=== PATIENT | male | born 1975 | race Caucasian/White ===

== ENCOUNTER → 2017-05-26 | Outpatient (CLI) | payer OTHER ==
[~2017-05-26] MED LIST: CPR250T PO; CPR500T PO; HYDR-34 PO; HYOS0.1217 PO; LISI20TA PO; PHEN200T27 PO
--- NOTE | 2017-05-26 11:05 | Diagnostic Imaging Report ---
Procedure: PA and lateral chest at 10:37. Indication: Preop gastric bypass. Comparison: There are no prior chest exams available for comparison. Findings: The heart size is within normal limits. The lungs are clear. There is no evidence for failure, pneumonia or for pleural effusion. Mediastinum is not widened. The osseous structures are intact. Impression: There is no evidence for an acute cardiopulmonary abnormality. Dictated by: Dictated on workstation # [id number]
== END ==
LOC: CARD 09:33
PROVIDERS: ATTEND Family Medicine
DX: Z01.811 Encounter for preprocedural respiratory examination (principal); Z01.810 Encounter for preprocedural cardiovascular examination; I10 Essential (primary) hypertension
CPT/HCPCS: 71046; 93005

== ENCOUNTER 2019-02-28 12:58 | Outpatient (CLI) | payer OTHER ==
[~2019-02-28] VITALS: Ht 180.3 cm; Wt 130.2 kg
[2019-02-28 13:35] VITALS: BP 135/90
[2019-02-28 13:39] LABS: BASOPHILS % (AUTO) 1 % (0-10); EOSINOPHILS # (AUTO) 0.2 10^3/uL (0.0-0.3); EOSINOPHILS % (AUTO) 3 % (0-10); HEMATOCRIT 48 % (40-54); LYMPHOCYTES # (AUTO) 1.9 X 10^3 (1.0-4.0); LYMPHOCYTES % (AUTO) 23 % (12-44); MEAN CORPUSCULAR HEMOGLOBIN 30 PG (25-34); MEAN CORPUSCULAR HGB CONC 34 G/DL (32-36); MEAN CORPUSCULAR VOLUME 88 FL (80-99); MEAN PLATELET VOLUME 10.6 FL (7.4-10.4); MONOCYTES # (AUTO) 0.7 X 10^3 (0.0-1.0); MONOCYTES % (AUTO) 8 % (0-12); NEUTROPHILS # (AUTO) 5.3 X 10^3 (1.8-7.8); NEUTROPHILS % (AUTO) 65 % (42-75); PLATELET COUNT 281 10^3/uL (130-400); RED CELL DISTRIBUTION WIDTH 14.4 % (10.0-14.5); WHITE BLOOD COUNT 8.1 10^3/uL (4.3-11.0)
[2019-02-28] MEDS ORDERED: LISI-552 PO (13:39)
[2019-02-28] MEDS ORDERED: AMLO5TAB9 PO (13:39)
== END 2019-02-28 13:25 | disposition home or self-care (01) ==
LOC: PREOP 12:58
PROVIDERS: ATTEND Surgery
DX: Z01.812 Encounter for preprocedural laboratory examination (principal); E66.01 Morbid (severe) obesity due to excess calories
CPT/HCPCS: 36415; 85025; 87081

== ENCOUNTER 2019-03-07 12:22 | Day surgery (SDC) | payer OTHER ==
[~2019-03-07] VITALS: Ht 180.3 cm; Wt 126.8 kg
[2019-03-07] VITALS (14 sets, daily range): BP systolic 135–165; BP diastolic 84–98
[~2019-03-07 12:22] MED LIST changes: +AMLO5TAB9 PO; +LISI-552 PO
[2019-03-07] MEDS: LACTATED RINGERS 1,000 ML IV PRN ×2 (12:50→16:48)
[2019-03-07] MEDS ORDERED: ceFAZolin 2 GM/50 ML NS 50 ML IV ONE (13:15)
[2019-03-07] MEDS ORDERED: BUP/EPI 0.5% 1:200,000 (SENSORCAINE) 30 ML VIAL ONE ×2 (13:58→17:09)
[2019-03-07] MEDS ORDERED: MIDAZOLAM 2 MG/2 ML (VERSED) VIAL ONE (13:58)
[2019-03-07] MEDS ORDERED: fentaNYL INJECTION 100 MCG/2 ML AMP ONE (13:58)
[2019-03-07] MEDS ORDERED: morphine INJ 10 MG/ML 1ML (SYR OR VIAL) ONE (15:22)
[2019-03-07] MEDS ORDERED: NS IV 1000 ML 1,000 ML IV SCH ×2 (15:56→19:15)
--- NOTE | 2019-03-07 15:56 | Progress Note-Pre Operative ---
Pre-Operative Progress Note H&P Reviewed The H&P was reviewed, patient examined and no changes noted. Date Seen by Provider: Mar 07, 2019 Time Seen by Provider: 15:30 Date H&P Reviewed: Mar 07, 2019 Time H&P Reviewed: 15:30 Pre-Operative Diagnosis: morbid obesity, sleep apnea, HTN KEN FOWLER MD Mar 07, 2019 15:56
[2019-03-07] MEDS ORDERED: RT-ALBUTEROL SULF 2.5 MG/3 ML PRE-MIX VIAL INH SCH (16:00)
[2019-03-07] MEDS ORDERED: oxyCODONE 5 MG/5 ML ORAL SOLN (roxiCODONE) 5 ML UDC PO PRN (16:00)
[2019-03-07] MEDS ORDERED: ONDANSETRON 4 MG/2 ML (SDV) Z0FRAN IV PRN (16:00)
[2019-03-07] MEDS ORDERED: fentaNYL INJECTION 1,000 MCG in NS (IVPB) 80 ML IV SCH (16:00)
[2019-03-07] MEDS ORDERED: NALOXONE 0.4 MG/ML 1 ML (NARCAN) VIAL IV PRN (16:00)
[2019-03-07] MEDS ORDERED: diphenhydrAMINE 50 MG/ML INJ (BENADRYL) IVP PRN (16:00)
[2019-03-07] MEDS ORDERED: METOCLOPRAMIDE INJ 10 MG/2 ML (REGLAN) IV PRN (16:00)
[2019-03-07] MEDS ORDERED: diphenhydrAMINE 50 MG/ML INJ (BENADRYL) IV PRN (16:00)
[2019-03-07] MEDS ORDERED: LIDOCAINE PF 2% 5 ML (XYLOCAINE) VIAL ONE (17:14)
[2019-03-07] MEDS ORDERED: ONDANSETRON 4 MG/2 ML (SDV) Z0FRAN ONE (17:14)
[2019-03-07] MEDS ORDERED: GLYCOPYRROLATE 0.2 MG/ML (ROBINUL) 2 ML VIAL ONE (17:14)
[2019-03-07] MEDS ORDERED: proPOfol 200 MG/20 ML (DIPRIVAN) VIAL IV ONE (17:14)
[2019-03-07] MEDS ORDERED: NEOSTIGMINE 3 MG/3 ML VIAL ONE (17:14)
[2019-03-07] MEDS ORDERED: DEXAMETHASONE 10 MG/ML (DECADRON) 1 ML VIAL ONE (17:14)
[2019-03-07] MEDS ORDERED: SEVOFLURANE (ULTANE) 15 ML INHAL SOLN ONE (17:14)
--- NOTE | 2019-03-07 17:34 | Progress Note-Post Operative ---
Post-Operative Progess Note Surgeon (s)/Hand Ii Cutter (s) Surgeon KEN FOWLER MD Hand Ii Cutter: trish fontaine [employer] Pre-Operative Diagnosis morbid obesity, sleep apnea, HTN Post-Operative Diagnosis same Procedure & Operative Findings Date of Procedure 03/07/19 Procedure Performed/Findings laparoscopic gastric sleeve resection Anesthesia Type get Estimated Blood Loss Estimated blood loss (mL): minimal Specimens/Packing Specimens Removed stomach KEN FOWLER MD Mar 07, 2019 17:34
[2019-03-07] MEDS ORDERED: ONDN4T PO (17:36)
[2019-03-07] MEDS ORDERED: PANT40TA3 PO (17:36)
[2019-03-07] MEDS ORDERED: HYDR-34 PO (17:36)
--- NOTE | 2019-03-07 17:37 | Discharge Inst-Surgical ---
D/C Lap Instructions-[place] Follow Up Appt in 2 weeks Activity as tolerated No driving for 24 hours No [address] while on pain medications Incentive Spirometry use every 2 hours while awake Phase 1 clear liquid diet for next 2 weeks. Symptoms to Report: Fever over 101 degree F, Nausea/Vomiting Infection Signs and Symptoms to report: Increased redness, Foul odor of wound, Increased drainage Bathing instructions: May shower Operative Area Clean/Dry; Keep incision clean/dry If any problems/questions: Contact your physician or go to Emergency Room KEN FOWLER MD Mar 07, 2019 17:37
[2019-03-07] MEDS ORDERED: PROMETHAZINE INJ 25 MG/ML (PHENERGAN) AMP IVP ONE (18:00)
[2019-03-07] MEDS ORDERED: morphine INJ 10 MG/ML 1ML (SYR OR VIAL) IVP ONE (18:00)
[2019-03-07] MEDS ORDERED: HYDROmorphone 2 MG/ML VIAL (DILAUDID) IV ONE (18:00)
[2019-03-07] MEDS ORDERED: MEPERIDINE (DEMEROL) INJ 50 MG/ML IVP ONE (18:00)
[2019-03-07] MEDS ORDERED: ONDANSETRON 4 MG/2 ML (SDV) Z0FRAN IVP PRN (18:00)
[2019-03-07] MEDS: metroNIDAZOLE 500MG/100ML IVPB 100 ML IV SCH ×2 (20:04→20:42)
[2019-03-07] MEDS: METOCLOPRAMIDE INJ 10 MG/2 ML (REGLAN) IVP SCH (20:42)
[2019-03-07] MEDS: ONDANSETRON 4 MG/2 ML (SDV) Z0FRAN IVP SCH (20:43)
[2019-03-07] MEDS: ENOXAPARIN 40 MG/0.4 ML (LOVENOX) SYR SC SCH (22:11)
[2019-03-07] MEDS: ceFAZolin 2 GM/50 ML NS 50 ML IV SCH (22:11)
[2019-03-08 00:34] VITALS: BP 157/91
[2019-03-08] MEDS: METOCLOPRAMIDE INJ 10 MG/2 ML (REGLAN) IVP SCH ×3 (01:47→13:36)
[2019-03-08] MEDS: ONDANSETRON 4 MG/2 ML (SDV) Z0FRAN IVP SCH ×3 (01:47→13:38)
[2019-03-08] MEDS: RT-ALBUTEROL SULF 2.5 MG/3 ML PRE-MIX VIAL INH SCH ×3 (02:36→11:01)
[2019-03-08] MEDS: metroNIDAZOLE 500MG/100ML IVPB 100 ML IV SCH ×2 (02:42→07:52)
--- NOTE | 2019-03-08 03:35 | OPERATIVE REPORT ---
DATE OF SERVICE: 03/07/2019 ATTENDING PRIMARY CARE PHYSICIAN: Dr. Jama. PREOPERATIVE DIAGNOSES: Morbid obesity, sleep apnea, hypertension. POSTOPERATIVE DIAGNOSES: Morbid obesity, sleep apnea, hypertension. PROCEDURE: Laparoscopic gastric sleeve resection. SURGEON: Ken Fowler MD. TRUSS DRIVER HELPER: Grabiel Estrada APRN. ANESTHESIA: General endotracheal. ESTIMATED BLOOD LOSS: Minimal. FINDINGS: Normal appearing stomach, liver, gallbladder. No hiatal hernia. DISPOSITION: The patient tolerated the procedure well. INDICATIONS: The patient is a 43-year-old male, who is in our surgical weight loss program for the laparoscopic gastric sleeve resection and meets the medical criteria for bariatric surgery. He began to gain the majority of his adult weight in his late 20s. He has tried a number of diet and exercise attempts without any success. He has tried diet programs including low-calorie, low-carbohydrate diet as well as SlimFast and has had some success; however, would always regain the weight back. He has also tried exercise regimens including resistance weight training, cardiovascular exercise machines and again would have some excess; however, would regain the weight back. He has also tried medications including phentermine; however, once he had stopped the medication he regained all his weight back. His medical comorbidities related to obesity include hypertension and obstructive sleep apnea. DESCRIPTION OF PROCEDURE: The patient was brought to the operating room, laid supine on the table. After adequate IV pain and sedative medications and general endotracheal intubation, the abdomen was prepped and draped in standard surgical fashion. A 0.5% Marcaine with epinephrine was then used to anesthetize the overlying skin in the left upper abdominal quadrant and transverse skin incision made using a 15 blade. An 0 silk suture was applied to the medial aspect of the incision for retraction and Veress needle inserted with a low opening pressure of 0 mmHg. The abdomen was insufflated to 15 mmHg pressure. Veress needle removed and a 5 mm XL trocar placed followed by a 5 mm 45-degree angle laparoscope visualizing the peritoneal cavity. A 4-quadrant abdominal exploration was performed. There was normal appearing gallbladder, liver, stomach and omentum. No hiatal hernia identified. Under direct visualization, we then proceeded to place a midabdominal left to midline 10 mm port after the skin and peritoneal lining were anesthetized using 0.5% Marcaine with epinephrine and transverse skin incision made using a 15 blade. In a similar manner, a midabdominal right of midline 15 mm port was placed followed by right upper abdominal quadrant 5 mm port. The epigastric region was then anesthetized using 0.5% Marcaine with epinephrine and a transverse skin incision made using 11 blade. A tract was then created through the abdominal wall layers using a trocar to a 5 mm port and through this opening, a medium-sized Nathansen liver retractor was placed and the left lobe of the liver was retracted anteriorly and superiorly. The patient was then placed in steep reverse Trendelenburg position. We then measured approximately 6 cm from the pylorus along the greater curvature and marked this with a marking pen. The gastrocolic ligament was then opened next to the stomach using the Sonicision entering the lesser sac. We then proceeded with inferior caudal dissection until we were approximately 2 cm below our marking using Sonicision. We then proceeded to take down the short gastric vessels and dissection cephalad until the angle of His connective tissue fibers and the posterior stomach behind this region were completely dissected out with visualization of good hemostasis. A 36-Lux[place]bourgish ViSiGi catheter was then placed under direct visualization and then directly guided into the pylorus. Using this as our staple line guide, we first proceeded with a TRAMAINE-45 mm polyglycolic black load and completed our resection using 60 mm black load and two 60 mm purple loads completing our resection and leaving approximately 2 cm near the gastroesophageal junction. Good hemostasis was observed. The staple line corners were then clipped with 5 mm clips. Tisseel fibrin glue was then placed on the staple line and omentum was then placed over the staple line. A leak test was performed and ViSiGi inflated to 35 atmospheres of pressure with no leak identified. This gas was then suctioned out and the ViSiGi removed. The stomach was removed through the 15 mm port site and the fascia and peritoneum to the 15 and 10 mm port site were then closed under direct visualization using a Nolan-Nelson device and 0 Vicryl suture. The abdomen was desufflated and remaining ports removed. All skin incisions were closed using 4-0 Monocryl running subcuticular sutures. Wounds were then cleaned and covered with Dermabond. The patient tolerated the procedure well. We will admit him 23-hour observation, proceed with DVT prophylaxis with early ambulation, calf SCDs as well as Lovenox injections. We will also proceed with pain control with INSTRUCTOR BUS TROLLEY AND TAXI pump. Tomorrow we will start a phase I clear liquid diet. Once he is tolerating 60 mL of clear liquids every 30 minutes, has adequate pain control with oral pain medications, ambulating well, we will discharge him home and have him follow phase I clear liquid diet for the next 2 weeks. Job ID: [id number] DocumentID: [id number] Dictated Date: 03/07/2019 17:45:20 Baler Operator Date: 03/08/2019 03:35:11 Dictated By: KEN FOWLER MD
[2019-03-08 03:47] VITALS: BP 155/97
[2019-03-08 05:10] LABS: HEMOGLOBIN 15.7 G/DL (13.3-17.7); MEAN PLATELET VOLUME 11.4 FL (7.4-10.4); RED CELL DISTRIBUTION WIDTH 14.3 % (10.0-14.5); WHITE BLOOD COUNT 11.8 10^3/uL (4.3-11.0)
[2019-03-08] MEDS: ceFAZolin 2 GM/50 ML NS 50 ML IV SCH (06:34)
--- NOTE | 2019-03-08 07:11 | Anesthesia-General Post-Op ---
General Patient Condition Mental Status/LOC: Same as Preop Cardiovascular: Satisfactory Nausea/Vomiting: Absent Respiratory: Satisfactory Pain: Controlled Complications: Absent Post Op Complications Complications None Follow Up Care/Instructions Patient Instructions None needed. Anesthesia/Patient Condition Patient Condition Patient is doing well, no complaints, stable vital signs, no apparent adverse anesthesia problems. No complications reported per nursing. D/C home per [facility] Criteria: Yes ANDREINA WALLACE CRNA Mar 08, 2019 07:11
[2019-03-08] MEDS: ENOXAPARIN 40 MG/0.4 ML (LOVENOX) SYR SC SCH (07:52)
[2019-03-08 08:00] VITALS: BP 141/82
[2019-03-08] MEDS ORDERED: SENNA W/DOCUSATE (SENOKOT S) TABLET PO SCH (09:00)
[2019-03-08] MEDS ORDERED: PANTOPRAZOLE 40 MG (PROTONIX) VIAL IV SCH (09:00)
[2019-03-08] MEDS ORDERED: PANTOPRAZOLE 40 MG (PROTONIX) TAB PO SCH (09:00)
--- NOTE | 2019-03-08 10:00 | Progress Note ---
Subjective Date Seen by a Provider: Mar 08, 2019 Time Seen by a Provider: 09:00 Subjective/Events-last exam doing well. mild nausea however controlled with meds. no fever/chills. tolerating clears. has not ambulated well. Objective Exam Vital Signs Date Time Temp Pulse Resp B/P (MAP) Pulse Ox O2 Delivery O2 Flow Rate FiO2 03/08/19 08:00 37.8 137 18 141/82 (101) 94 Room Air 03/08/19 07:43 96 Room Air 03/08/19 03:47 37.0 119 18 155/97 (116) 96 Room Air 03/08/19 02:36 Room Air 03/08/19 00:34 36.6 116 20 157/91 (113) 97 Room Air 03/07/19 23:00 36.4 119 22 141/87 (105) 99 Room Air 03/07/19 22:52 36.2 117 20 153/94 95 Room Air 03/07/19 22:00 37.0 114 20 145/88 (107) 96 Room Air 03/07/19 20:57 36.8 116 16 140/84 (102) 96 Room Air 03/07/19 20:52 36.4 117 16 137/86 (103) 96 Room Air 03/07/19 20:00 Room Air 03/07/19 18:50 36.2 117 20 153/94 (113) 95 Room Air 03/07/19 18:45 Room Air 03/07/19 18:40 36.2 16 148/95 (112) 96 Room Air 03/07/19 18:30 16 149/92 (111) 95 Room Air 03/07/19 18:30 Room Air 03/07/19 18:20 16 158/95 (116) 100 Simple Mask 5 03/07/19 18:15 Simple Mask 5 03/07/19 18:10 16 157/97 (117) 98 Simple Mask 8 03/07/19 18:00 Simple Mask 8 03/07/19 18:00 16 163/95 (117) 99 Simple Mask 8 03/07/19 17:55 16 159/96 (117) 100 Simple Mask 8 03/07/19 17:45 Simple Mask 8 03/07/19 17:45 36.6 11 165/98 (120) 97 Simple Mask 8 03/07/19 14:58 36.1 75 18 135/86 (102) 94 Room Air I & O0 03/08/19 06:59 Intake Total 1300 ml Output Total 1525 ml Balance -225 ml Capillary Refill : General Appearance: No Apparent Distress HEENT: PERRL/EOMI Neck: Full Range of Motion Respiratory: Chest Non Tender, Lungs Clear, Normal Breath Sounds Cardiovascular: Regular Rate, Rhythm Gastrointestinal: normal bowel sounds, soft, tenderness Extremity: Normal Capillary Refill Neurologic/Psychiatric: Alert, Oriented x3 Skin: Normal Color Lymphatic: No Adenopathy Results Lab Laboratory Tests 03/08/19 04:40: White Blood Count 11.8H, Red Blood Count 5.32, Hemoglobin 15.7, Hematocrit 46, Mean Corpuscular Volume 87, Mean Corpuscular Hemoglobin 30, Mean Corpuscular Hemoglobin Concent 34, Red Cell Distribution Width 14.3, Platelet Count 300, Mean Platelet Volume 11.4H Assessment/Plan Assessment/Plan Assess & Plan/Chief Complaint s/p lap sleeve gastrectomy. increase ambulation and IS. transition to PO pain meds. home soon. Clinical Quality Measures DVT/VTE Risk/Contraindication: Risk Factor Score Per Nursin RFS Level Per Nursing on Admit: 4+=Very High KEN FOWLER MD Mar 08, 2019 10:00
[2019-03-08 11:28] VITALS: BP 141/82
[2019-03-08 15:20] VITALS: BP 141/82
--- NOTE | 2019-03-08 15:43 | NUR ---
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 WITNESS TO MEDICATION WASTE WAS ANA JERRY. WASTE AMOUNT WAS 87 MLS
[2019-03-08] MEDS ORDERED: METOCLOPRAMIDE INJ 10 MG/2 ML (REGLAN) IVP PRN (16:00)
[2019-03-08] MEDS ORDERED: ONDANSETRON 4 MG/2 ML (SDV) Z0FRAN IVP PRN (16:00)
== END 2019-03-08 15:31 | disposition home or self-care (01) ==
LOC: SDC 12:22 → 4TH 18:45 → SDC 03-08 15:31
PROVIDERS: ATTEND Surgery
DX: E66.01 Morbid (severe) obesity due to excess calories (principal); I10 Essential (primary) hypertension; G47.33 Obstructive sleep apnea (adult) (pediatric); Z99.89 Dependence on other enabling machines and devices; Z79.899 Other long term (current) drug therapy; Z80.1 Family history of malignant neoplasm of trachea, bronchus and lung; Z82.49 Family history of ischemic heart disease and other diseases of the circulatory system
CPT/HCPCS: 36415; 85027; 94640; 94664; 94760